=== PATIENT | male | born 1985 | race Caucasian/White ===

== ENCOUNTER 2020-10-15 20:36 | Emergency (ER) | payer OTHER ==
[~2020-10-15] VITALS: Ht 172.7 cm; Wt 72.6 kg
--- NOTE | 2020-10-15 20:50 | NUR ---
Pt ambulated to ER with c/o abscess to left lower jaw/dental pain, current PL:07/11. A/O x4, no SOB or labored breathing, afeberile. Denies CP/pressure. No GI/ distress.
--- NOTE | 2020-10-15 21:08 | NUR ---
Dr. Pearson at bedside, MSE in progress.
[2020-10-15] MEDS ORDERED: CLIN300C3 PO (21:23)
[2020-10-15] MEDS ORDERED: OXYC-128 PO (21:25)
--- NOTE | 2020-10-15 21:28 | NUR ---
Patient discharged to home in stable condition. A/O x4, no SOB/labored breathing. Afebrile. Denies any pain/discomfort at this time. Written and verbal after care instructions given. Patient verbalizes understanding of instructions. Stressed follow up or return to ER for worsening s/s. Steady gait.
[2020-10-15] MEDS ORDERED: CLINDAMYCIN HCL 150 MG CAPSULE PO ONE (21:30)
[2020-10-15] MEDS ORDERED: CLINDAMYCIN HCL 150 MG CAPSULE ONE (21:30)
[2020-10-15 21:31] VITALS: BP 134/76
== END 2020-10-15 21:31 | disposition home or self-care (01) ==
LOC: ER 20:38
DX: K04.7 Periapical abscess without sinus (principal); F17.200 Nicotine dependence, unspecified, uncomplicated
CPT/HCPCS: A4663